=== PATIENT | male | born 1950 | race Caucasian/White ===

== ENCOUNTER 2016-02-29 11:01 | Day surgery (SDC) | payer MEDICARE, MEDICAID ==
[~2016-02-29 11:01] MED LIST: ADULT LOW DOSE81 MG PO; AMLODIPINE5 M1 PO; ATORVASTATIN CA20 MG PO; CLONIDINE0.1 MG PO; FERROCITE324 MG PO; GEMFIBROZIL600 MG PO; LEVAQUIN500 MG PO; ONE-A-DAY MEN'1 EAC1 PO; OXYGEN3 IH; PAROXETINE20 MG PO; ROPINIROLE 0.0.25 MG PO; SOOTHE MC; ZETIA10 MG PO
--- NOTE | 2016-02-29 12:18 | Operative Note ---
Endoscopy Report Date: 02/29/16 Preoperative diagnosis: Iron Deficiency anemia Procedure Type of procedure: 1. Esophagogastroduodenoscopy with biopsies 2. Total colonoscopy to terminal ileum with polypectomy Indications: 65-year-old white male. He has mild mental retardation. He was referred from Dr. Miki Morales for colonoscopy and upper endoscopy to workup iron deficiency anemia. Patient has recently relocated from [facility]. It sounds as though the patient may have had a colonoscopy greater than 2 years ago. He never had previous upper endoscopy. Plan was made for upper endoscopy and colonoscopy. Consent was obtained the patient was taken to same-day surgery endoscopy procedure room. He was positioned in a lateral decubitus position. Adequate intravenous sedation was achieved with anesthesia administration of propofol. Olympus endoscope was inserted via the oropharynx and advanced through the esophagus. There was minor prominent mucosa at the gastroesophageal junction possibly consistent with Taylor's esophagus. Stomach was cannulated and insufflated. Retroflexion revealed a moderate sliding hiatal hernia. Gastric antral mucosal biopsy was obtained for CLOtest for H. pylori. Pylorus was traversed. Duodenal bulb and through the duodenal sweep appeared unremarkable. The was withdrawn into the distal esophagus and several biopsies were obtained of the gastroesophageal junction. Endoscope was withdrawn. Patient was then repositioned for colonoscopy. Variable stiffness Olympus colonoscope was inserted via the anus. It was advanced to the cecum with some minor difficulty. Colonic preparation was fair but adequate visualization was achieved with irrigation and suctioning. The cecal valve and appendiceal orifice were identified. Colonoscope was advanced into the terminal ileum which appeared grossly normal. Colonoscope was withdrawn through the colon with careful surveillance carried out. In the distal transverse colon as a possible very small diminutive polyp removed with cold biopsy forceps. Colonoscope was withdrawn through the remaining colon. In the rectum retroflexion revealed what appeared to be prolapsing nonbleeding internal hemorrhoids. Colonoscope was withdrawn. Findings: 1. Moderate hiatal hernia 2. Mild distal esophagitis 3. Possible tiny diminutive polyp in the transverse colon 4. Prolapsing nonbleeding internal hemorrhoids Recommendations: No source on upper endoscopy or colonoscopy which would indicate a source of gastrointestinal hemorrhage leading to chronic iron deficiency anemia. Likely recommend repeat colonoscopy in 5 years. at 1218
[2016-02-29 13:07] VITALS: BP 138/63
[2016-04-05] MEDS ORDERED: CLARITHROMYCIN500 MG PO (13:24)
== END 2016-02-29 12:45 | disposition home or self-care (01) ==
LOC: SDC 11:01
PROVIDERS: Surgery
PROC: 0DB48ZX Excision of Esophagogastric Junction, Via Natural or Artificial Opening Endoscopic, Diagnostic (ICD-10-PCS; 2016-02-29)
PROC: 0DBL8ZX Excision of Transverse Colon, Via Natural or Artificial Opening Endoscopic, Diagnostic (ICD-10-PCS; principal; 2016-02-29 11:00)
DX: D50.9 Iron deficiency anemia, unspecified (principal); D12.3 Benign neoplasm of transverse colon; K64.8 Other hemorrhoids; K44.9 Diaphragmatic hernia without obstruction or gangrene; K20.9 Esophagitis, unspecified; E11.8 Type 2 diabetes mellitus with unspecified complications

== ENCOUNTER → 2016-03-31 | Outpatient (CLI) | payer MEDICARE, MEDICAID ==
[~2016-03-31] MED LIST changes: +CLARITHROMYCIN500 MG PO
[2016-03-31 12:23] LABS: HEMOGLOBIN 14.5 g/dL (14.1-18.0); LYMPH % 28.1 % (10-50)
[2016-03-31 13:08] LABS: BUN 21 mg/dL (7-18)
[2016-03-31 13:14] LABS: GFR (ESTIMATED) 75 ML/MIN (>60)
[2016-04-01 08:38] LABS: Iron 76 ug/dL (38-169); Iron Saturation 27 % (15-55); UIBC 201 ug/dL (111-343)
== END ==
LOC: LAB 12:01
PROVIDERS: Internal Medicine
DX: D50.9 Iron deficiency anemia, unspecified (principal); K20.9 Esophagitis, unspecified

== ENCOUNTER → 2016-06-20 | Outpatient (CLI) | payer MEDICARE, MEDICAID ==
[2016-06-20 17:25] LABS: BUN 21 mg/dL (7-18)
[2016-06-20 17:38] LABS: HEMOGLOBIN 14.1 g/dL (14.1-18.0); LYMPH # 2.8 K/mm3 (0.7-4.5); LYMPH % 29.9 % (10-50)
[2016-06-20 17:48] LABS: GFR (ESTIMATED) 75 ML/MIN (>60)
[2016-06-22 09:40] LABS: Creatinine, Urine 69.6 mg/dL (Not Estab.)
== END ==
LOC: LAB 16:52
PROVIDERS: Physician Assistant
DX: I10 Essential (primary) hypertension (principal); E11.9 Type 2 diabetes mellitus without complications; E78.5 Hyperlipidemia, unspecified

== ENCOUNTER → 2016-10-06 | Outpatient (CLI) | payer MEDICARE, MEDICAID ==
[~2016-10-06] MED LIST changes: +AUGMENTIN 875-1 EACH PO; +FLONASE 50 MCG16 GM; +GLIPIZIDE ER5 MG PO
[2016-10-06 11:41] LABS: HEMOGLOBIN 13.4 g/dL (14.1-18.0); LYMPH % 27.6 % (10-50)
[2016-10-07 08:40] LABS: Iron 59 ug/dL (38-169); Iron Saturation 23 % (15-55); UIBC 195 ug/dL (111-343)
== END ==
LOC: LAB 11:01
PROVIDERS: Internal Medicine
DX: D50.9 Iron deficiency anemia, unspecified (principal)